=== PATIENT | female | born 1960 | race Asian ===

== ENCOUNTER 2018-03-28 10:28 | Day surgery (SDC) | payer OTHER ==
[2018-03-28] MEDS ORDERED: LIDOCAINE 2% (SDV) 5 ML INJ (12:52)
[2018-03-28] MEDS ORDERED: PROPOFOL 20 ML (12:52)
[2018-03-28] MEDS ORDERED: MIDAZOLAM 1 MG/ML 2 ML INJ (12:52)
[2018-03-28] MEDS ORDERED: PROCHLORPERAZINE 10 MG INJ IV (13:00)
[2018-03-28] MEDS ORDERED: FENTAnyl 50 MCG/ML VIAL IV (13:00)
[2018-03-28] MEDS ORDERED: HYDROmorphONE (0.2 MG/ML) 10ML SYG IV (13:00)
[2018-03-28] MEDS ORDERED: ONDANSETRON 4 MG INJ IV (13:00)
[2018-03-28] MEDS ORDERED: DIPHENHYDRAMINE 50 MG INJ IV (13:00)
[2018-03-28] MEDS ORDERED: MEPERIDINE 25 MG INJ IV (13:00)
[2018-03-28] MEDS ORDERED: OXYCODONE/ACETAMINOPHEN (5/325) TAB PO (13:00)
[2018-03-28] MEDS ORDERED: CEFAZOLIN 1 GM INJ (13:03)
[2018-03-28] MEDS ORDERED: DEXAMETHASONE 4 MG/ML 1 ML INJ (13:03)
[2018-03-28] MEDS ORDERED: ONDANSETRON 4 MG INJ (13:03)
[2018-03-28] MEDS ORDERED: FAMOTIDINE 20 MG INJ (13:06)
[2018-03-28] MEDS ORDERED: FENTAnyl 50 MCG/ML VIAL (13:10)
[2018-03-28] MEDS ORDERED: PHENYLephrine (100 MCG/ML) 5ML SYG ×2 (13:16→13:45)
[2018-03-28] MEDS ORDERED: EPHEDrine SULFATE 50 MG/5 ML SYG (13:27)
[2018-03-28] MEDS: BUPIVACAINE 0.25%/EPI (SDV) 30 ML INJ INJ (13:36)
== END 2018-03-28 15:23 | disposition home or self-care (01) ==
LOC: SDS 10:28
DX: K14.8 Other diseases of tongue (principal); E11.9 Type 2 diabetes mellitus without complications; E78.5 Hyperlipidemia, unspecified; E03.9 Hypothyroidism, unspecified
CPT/HCPCS: 41110; 82962; 88305